=== PATIENT | male | born 1955 | race Caucasian/White ===

== ENCOUNTER 2019-01-16 08:19 | Emergency (ER) | payer OTHER ==
[~2019-01-16] VITALS: Ht 185.4 cm; Wt 77.1 kg
[2019-01-16 09:29] LABS: ABSOLUTE BASOPHILS 0.1 thou/uL (0.0-0.2); ABSOLUTE EOSINOPHILS 0.1 thou/uL (0.0-0.7); ABSOLUTE LYMPHOCYTES 1.1 thou/uL (0.8-5.3); ABSOLUTE MONOCYTES 0.7 thou/uL (0.0-1.2); BASOPHILS 0.9 %; HEMATOCRIT 57.4 % (42.0-52.0); HEMOGLOBIN 19.9 gm/dL (14.0-18.0); LYMPHOCYTES 15.2 %; MCH 35.7 pg (26.0-34.0); MCHC 34.6 g/dL (28.0-37.0); MCV 103.2 fL (80.0-100.0); MONOCYTES 10.1 %; MPV 8.5 fl. (7.2-11.1); NUCLEATED RBCS 0 /100WBC; PLATELET COUNT* 141 thou/uL (150-400); POLYS 71.8 %; RBC 5.57 mil/uL (4.50-6.00); RDW-CV 13.2 % (10.5-14.5)
[2019-01-16 09:40] LABS: INR 1.1; PROTIME 10.9 Seconds (9.20-11.50)
[2019-01-16 09:46] LABS: ALBUMIN 2.6 g/dL (3.4-5.0); CALCIUM 8.5 mg/dL (8.5-10.1); POTASSIUM 3.8 mmol/L (3.5-5.1); TOTAL BILIRUBIN 0.7 mg/dL (<0.1-1.0); TOTAL PROTEIN 6.8 g/dL (6.4-8.2)
[2019-01-16] MEDS ORDERED: XARELTO15 MG PO (12:13)
[2019-01-16 12:23] VITALS: BP 161/83
== END 2019-01-16 12:25 | disposition home or self-care (01) ==
LOC: M.ERS 08:19
PROVIDERS: Personal Emergency Response Attendant
DX: I82.411 Acute embolism and thrombosis of right femoral vein (principal)